=== PATIENT | male | born 1950 | race Caucasian/White ===

== ENCOUNTER 2020-05-04 05:12 | Emergency (ER) | payer MEDICARE, SELFPAY ==
[2020-05-04] VITALS (13 sets, daily range): BP systolic 121–172; BP diastolic 60–87; PULSE 20–94; RESP 16–24; TEMP 36.6–36.8; O2SAT 94–97; BMI 22.3
--- NOTE | 2020-05-04 05:13 | PC.NURSE ---
pt's wallet given to power house engineer. sultana inside counted in front of patient with witnesses: leatha thomas rn; darcy carr; sebastián,emt-b, watson,emt-p; $270 noted; id, medicare card, bank id number, and speedy rewards card.
--- NOTE | 2020-05-04 05:22 | PC.NURSE ---
call placed to jovan velasquez at the request of the patient [phone], message left to return call.
[2020-05-04 05:27] LABS: POC Glucose,Bedside 333 (70-110)
--- NOTE | 2020-05-04 05:31 | PC.NURSE ---
call placed to jovan velasquez [phone], point of contact for patient without success.
--- NOTE | 2020-05-04 05:52 | PC.NURSE ---
made contact with nick at the [place] police department. he stated his officers made contact with jovan bergmanheatherchance and are going to give her the [phone] number to call us directly. further stated there are no missing person cases active in their county at this time. additionally, per him, the patient was supposed to be in [place], [place]. when questioned, the patient THOUGHT he was in [place], [place]. Not aware that he is in [place]. [employer] at bedside, and attempted to explain this to patient. pt told him no, i'm not . this nurse took her own personal license in and showed the patient that it is a [place] license and informed him he is approximately 4 hours from his id address. pt just shook his head, and said oh .
--- NOTE | 2020-05-04 05:57 | PC.NURSE ---
wallet given back to patient. id and medicare card remain with registration. sultana intact to wallet.
--- NOTE | 2020-05-04 06:06 | PC.NURSE ---
Pt is A&O x3. Pt denies injuries and pain. This RN asked pt if he would like to be treated/labs drawn while here and pt denies tx stating he just wants to go home and he is fine . Pt agrees to having breakfast provided and waiting for care management to arrive this AM.
--- NOTE | 2020-05-04 06:47 | PC.NURSE ---
call placed to care management. explained situation to uma peterson. was advised they would be down to talk to the patient.
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
--- NOTE | 2020-05-04 08:33 | PC.NURSE ---
Pt currently resting at this time, pt has no needs, awaiting for a ride.
--- NOTE | 2020-05-04 09:16 | PC.NURSE ---
CALLED POLICE OF [facility] FOR INFORMATION OF PT CONTACT BECAUSE THE NUMBER PT HAS GIVEN US IS NOT WORKING. STATED THEY WOULD GO BY THE PT RESIDENCE AND SEE IF HIS LIVE IN GF IS AT HOME AND FOR US TO CONTACT HER.
--- NOTE | 2020-05-04 09:19 | PC.NURSE ---
Care Management Rosanne Newell called advising she got hold of the girl friend but there is no one who can come get him. She is calling [facility]PS to see what they suggest.
--- NOTE | 2020-05-04 13:23 | PC.NURSE ---
IT was decided with the help of care management that [employer] would go get the patient's car from the impound lot and cam and pick the patient up and they would tow the car back to his residence in [place] and the patient would be allowed to ride with them. Pt agreeable to this arrangement and advised he would be able to pay for this. Arrangements were made when [facility] called and advised a family member had called their facility and advised they would be on the way to pick the patient up. [employer] notified and patient updated on POC. Pt agreeable and was gotten a lunch tray.
--- NOTE | 2020-05-04 15:22 | PC.NURSE ---
pt switched rooms , he continues to be alert and oriented ate a very good lunch , he continues to wait on family to get here. he is sleeping with no complaints
[2020-05-05 23:30] LABS: POC Glucose,Bedside 277 (70-110)
== END 2020-05-04 16:52 | disposition home or self-care (01) ==
PROVIDERS: Emergency Provider Emergency Medicine
DX: R41.82 Altered mental status, unspecified (principal); R73.9 Hyperglycemia, unspecified; R03.0 Elevated blood-pressure reading, without diagnosis of hypertension
CPT/HCPCS: 82962; 99283